=== PATIENT | male | born 1995 | race Two or more races ===

== ENCOUNTER 2019-07-21 22:42 | Emergency (ER) | payer OTHER ==
[~2019-07-21] VITALS: Ht 165.1 cm; Wt 57.6 kg
--- NOTE | 2019-07-21 23:20 | NUR ---
BIB FAMILY FOR C/O CP X 2 DAYS AND WEAKNESS X 8 MONTHS. PT WAS SEEN BY [facility] PCP AND WAS DIAGNOSED W/ VIT D. DEFICIENCY AND HAS BEED RECEIVING VIT D SUPP W/ NO HELP. PLACED KATLYN MONITOR, VSS. WILL CONT TO MONITOR ,
[2019-07-21 23:32] LABS: BASOPHILS % (AUTO) 0.3 % (0.0-2.0); EOSINOPHILS % (AUTO) 1.1 % (0.0-6.0); HEMATOCRIT 43 % (39-51); HEMOGLOBIN 14.7 g/dL (13.5-17.5); LYMPHOCYTES # (AUTO) 0.6 /CMM (0.8-4.8); LYMPHOCYTES % (AUTO) 7.8 % (20.0-44.0); MEAN CORPUSCULAR HGB CONC 35 g/dl (31.0-36.0); MEAN CORPUSCULAR VOLUME 95 fL (80-96); MONOCYTES # (AUTO) 0.5 /CMM (0.1-1.30); MONOCYTES % (AUTO) 6.2 % (2.0-12.0); NEUTROPHILS # (AUTO) 6.4 /CMM (1.8-8.9); NEUTROPHILS % (AUTO) 84.6 % (43.0-81.0); PLATELET COUNT (AUTO) 173 /CMM (150-450); RED BLOOD CELL COUNT(AUTO) 4.49 MIL/uL (4.5-6.0); WHITE BLOOD COUNT (AUTO) 7.5 K/uL (4.3-11.0)
[2019-07-21 23:55] LABS: ALANINE AMINOTRANSFERASE 11 U/L (12-78); ALBUMIN 4.3 g/dL (3.4-5.0); ALKALINE PHOSPHATASE 111 U/L (46-116); ASPARTATE AMINOTRANSFERASE 18 U/L (15-37); B-TYPE NATRIURETIC PEPTIDE 14 PG/ML (0-125); BILIRUBIN,DIRECT 0.2 mg/dL (0.0-0.2); BILIRUBIN,TOTAL 1.3 mg/dL (0.2-1.0); CALCIUM, SERUM 9.1 mg/dL (8.5-10.1); CARBON DIOXIDE 30 mmol/L (21-32); CHLORIDE 103 mmol/L (98-107); GLUCOSE 112 mg/dL (74-106); POTASSIUM 3.7 mmol/L (3.5-5.1); SODIUM SERUM 140 mmol/L (136-145); TOTAL PROTEIN, SERUM 7.5 g/dL (6.4-8.2); UREA NITROGEN, BLOOD 10 mg/dL (7-18)
--- NOTE | 2019-07-22 01:03 | NUR ---
IV removed. Catheter intact and site benign. Pressure and 4x4 applied to site. No bleeding noted.Patient discharged to home in stable condition. Written and verbal after care instructions given. Patient verbalizes understanding of instruction.
[2019-07-22 01:08] VITALS: BP 132/70
== END 2019-07-22 01:08 | disposition home or self-care (01) ==
LOC: ER 22:46
DX: R07.89 Other chest pain (principal); F41.9 Anxiety disorder, unspecified; R53.83 Other fatigue
CPT/HCPCS: 36415; 71045-TC; 72100-TC; 80048-TC; 80076-TC; 83880; 84443-TC; 84484-TC; 85025-TC